=== PATIENT | male | born 1955 | race Caucasian/White ===

== ENCOUNTER 2017-07-29 17:28 | Emergency (ER) | payer OTHER ==
[~2017-07-29] VITALS: Ht 177.8 cm; Wt 100.4 kg
[~2017-07-29 17:28] MED LIST: ONE DAILY1 EAC2
[2017-07-29 18:42] VITALS: BP 00/0
== END 2017-07-29 18:43 | disposition home or self-care (01) ==
LOC: EME 17:28
DX: S61.412A Laceration without foreign body of left hand, initial encounter (principal); I10 Essential (primary) hypertension; Z87.891 Personal history of nicotine dependence
CPT/HCPCS: 99281; 99284

== ENCOUNTER → 2017-11-29 | Outpatient (CLI) | payer OTHER | END | disposition home or self-care (01) | LOC: RES 10:44 | DX: J98.4 Other disorders of lung (principal) | CPT/HCPCS: 94060; 94726; 94729 ==